=== PATIENT | female | born 1955 | race Caucasian/White ===

== ENCOUNTER 2017-07-18 15:50 | Emergency (ER) | payer MEDICAID ==
[~2017-07-18] VITALS: Ht 162.6 cm; Wt 78.0 kg
[2017-07-18 18:10] LABS: microscopic required? YES; urine erythrocyte TRACE (NEGATIVE)
[2017-07-18 18:24] LABS: BASOPHIL % 0.5 % (0-2); PLATELET COUNT 262 x10^3mcL (130-400); RED CELL DISTRIBUTION WIDTH 13.2 % (11.5-14.5)
[2017-07-18 18:25] LABS: AMPHETAMINE QUAL UR NONE DETECTED (NEG <=1000)
[2017-07-18 18:42] LABS: CALCIUM 8.7 mg/dL (8.5-10.1); CARBON DIOXIDE 32.3 mmol/L (21-32); CHLORIDE SERUM 105 mmol/L (98-107); GFR1 > 60 mL/min; GLUCOSE SERUM 101 mg/dL (74-106); POTASSIUM SERUM 4.3 mmol/L (3.5-5.1); SODIUM SERUM 142 mmol/L (136-145)
[2017-07-18 18:44] LABS: ALBUMIN 3.7 g/dL (3.4-5.0); ALKALINE PHOSPHATASE 98 U/L (46-116); ALT/SGPT 79 U/L (14-59); AMYLASE 52 U/L (25-115); AST/SGOT 42 U/L (15-37); BILIRUBIN TOTAL 1.1 mg/dL (0.20-1.00); CHOLESTEROL 147 mg/dL (<200); HDL CHOLESTEROL 35 mg/dL (40-60); LIPASE 136 IU/L (73-393); T4(THYROXINE) 8.9 ug/dL (4.7-13.3); TOTAL PROTEIN, SERUM 7.3 g/dL (6.4-8.2)
[2017-07-18 20:20] VITALS: BP 121/90
== END 2017-07-18 20:20 | disposition home or self-care (01) ==
LOC: ED 15:50
PROVIDERS: Emergency Medicine
DX: F41.9 Anxiety disorder, unspecified (principal); I10 Essential (primary) hypertension; M54.2 Cervicalgia; R51 Headache
CPT/HCPCS: 36415; 83880